=== PATIENT | female | born 1930 | race Caucasian/White ===

== ENCOUNTER → 2016-08-27 12:51 | Outpatient (CLI) | payer MEDICARE | END | disposition home or self-care (01) | LOC: D.RAD 08-13 14:00 → D.RT 12:51 | DX: Z79.899 Other long term (current) drug therapy (principal) ==

== ENCOUNTER → 2016-12-24 07:52 | Outpatient (CLI) | payer MEDICARE | END | disposition home or self-care (01) | LOC: D.RAD 07:52 | DX: R06.09 Other forms of dyspnea (principal) ==

== ENCOUNTER → 2017-01-16 07:52 | Outpatient (CLI) | payer MEDICARE | END | disposition home or self-care (01) | LOC: D.RT 07:52 | DX: R06.09 Other forms of dyspnea (principal) ==

== ENCOUNTER → 2018-10-11 07:09 | Outpatient (CLI) | payer MEDICARE | END | disposition home or self-care (01) | LOC: D.US 07:09 | PROVIDERS: ATTEND Family Medicine | DX: R10.9 Unspecified abdominal pain (principal) ==

== ENCOUNTER → 2019-12-12 08:52 | Outpatient (CLI) | payer MEDICARE | END | disposition home or self-care (01) | LOC: D.US 08:52 | PROVIDERS: ATTEND Family Medicine | DX: E05.90 Thyrotoxicosis, unspecified without thyrotoxic crisis or storm (principal) ==